=== PATIENT | male | born 2000 | race African-American/Black ===

== ENCOUNTER 2021-12-12 16:28 | Emergency (ER) | payer MEDICAID ==
[~2021-12-12] VITALS: Ht 172.7 cm; Wt 53.5 kg
[2021-12-12 16:42] VITALS: BP 123/80
--- NOTE | 2021-12-12 17:08 | NUR ---
LILA GARRETT EVALUATING PATIENT AT BEDSIDE.
[2021-12-12] MEDS ORDERED: BEN10 PO (17:12)
--- NOTE | 2021-12-12 17:15 | NUR ---
21/M BIB SELF WITH C/O ABDOMINAL PAIN RADIATING TO LOWER BACK X4 DAYS. PATIENT REPORTS 8/10 SHARP PAIN, STATES PAIN WORSENS AT TIMES WITH WALKING, DENIES N/V/D, SOB, CP, FEVER OR COUGH.
[2021-12-12] MEDS: AZITHROMYCIN 250 MG TAB PO ONE (17:25)
[2021-12-12 18:05] VITALS: BP 123/80
--- NOTE | 2021-12-12 18:05 | NUR ---
Patient discharged with v/s stable. Written and verbal after care instructions ABOUT CHLAMYDIA AND ABDOMINAL PAIN given and explained. Patient alert, oriented and verbalized understanding of instructions. Ambulatory with steady gait. All questions addressed prior to discharge. ID band removed. Patient advised to follow up with PMD. Rx of BENTYL given.
[2021-12-12] MEDS: IBUPROFEN 600 MG TAB PO ONE (18:06)
== END 2021-12-12 18:05 | disposition home or self-care (01) ==
LOC: MED 16:28
DX: R10.9 Unspecified abdominal pain (principal); T36.8X5A Adverse effect of other systemic antibiotics, initial encounter; Y92.89 Other specified places as the place of occurrence of the external cause
CPT/HCPCS: 99283

== ENCOUNTER 2021-12-14 09:45 | Emergency (ER) | payer MEDICAID ==
[~2021-12-14] VITALS: Ht 170.2 cm; Wt 53.5 kg
[~2021-12-14 09:45] MED LIST: BEN10 PO
--- NOTE | 2021-12-14 09:57 | NUR ---
Patient ambulated with steady gait to be 6.
[2021-12-14 09:59] VITALS: BP 124/96
--- NOTE | 2021-12-14 10:05 | NUR ---
21 Y/O MALE C/O EPIGASTRIC PAIN 5 [id number]. PT STATES HE WAS RECENTLY SEEN IN ER AND GIVEN MEDICATIONS THAT HELPED, PT STATES HE DID NOT REFILL RX FOR BENTYL. DENIES FEVER/CHILLS. STATES N/V. DENIES PMH NKA
[2021-12-14] MEDS ORDERED: OMEP40EC24 PO (10:50)
[2021-12-14] MEDS ORDERED: ONDA8TAB87 PO (10:50)
[2021-12-14] MEDS ORDERED: ALUMINUM HYD/MAG/SIMETHICONE 30 ML UDC ONE (11:00)
[2021-12-14] MEDS ORDERED: DICYCLOMINE HCL LIQUID 10 MG/5 ML UDC ONE (11:01)
[2021-12-14] MEDS: DICYCLOMINE HCL LIQUID 20 MG, ALUMINUM HYD/MAG/SIMETHICONE 30 ML, LIDOCAINE VISCOUS 2% ... PO ONE ×3 (11:07)
[2021-12-14 11:37] VITALS: BP 124/96
--- NOTE | 2021-12-14 11:37 | NUR ---
Patient discharged with v/s stable. Written and verbal after care instructions ABOUT NAUSEA AND ABDOMINAL PAIN given and explained. Patient alert, oriented and verbalized understanding of instructions. Ambulatory with steady gait. All questions addressed prior to discharge. ID band removed. Patient advised to follow up with PMD. Rx of PRILOSEC AND ZOFRAN given.
--- NOTE | 2021-12-14 11:47 | NUR ---
The patient's care was reviewed and supervised by Jessica Duval RN.
== END 2021-12-14 11:37 | disposition home or self-care (01) ==
LOC: MED 09:45
DX: R10.13 Epigastric pain (principal); R11.0 Nausea; F12.10 Cannabis abuse, uncomplicated
CPT/HCPCS: 99283